=== PATIENT | male | born 1975 | race Caucasian/White ===

== ENCOUNTER 2020-05-06 02:26 | Inpatient (IN) | payer BC ==
[2020-05-06] MEDS ORDERED: LACTATED RINGERS SOLUTION 1000 ML INFUS.BAG IV ONE ×2 (02:43→06:04)
[2020-05-06] MEDS ORDERED: morphine SULFATE 4 MG/ML VIAL IVPUSH ONE (02:43)
[2020-05-06] MEDS ORDERED: FAMOTIDINE 20 MG/50 ML IVPB 20 MG/50 ML MG IVPB ONE ×2 (02:45→02:47)
[2020-05-06] MEDS ORDERED: morphine SULFATE 4 MG/ML VIAL ONE (02:47)
[2020-05-06 03:09] LABS: BASO % 0.4 % (0-2.0); EOS % 3.1 % (0-4.5); HEMATOCRIT 40.7 % (35.4-49); LYMPH % 15.1 % (8-40); MCH 31.2 pg (25.7-33.7); MCHC 34.4 g/dl (32.0-35.9); MEAN CELL VOLUME 90.8 fl (80-96); MEAN PLT VOLUME 9.3 fl (7.5-11.1); NEUT % 75.4 % (42.8-82.8); PLATELET COUNT 202 K/MM3 (134-434); RBC 4.48 M/mm3 (4.00-5.60); RDW 13.2 % (11.9-15.9); WHITE BLOOD COUNT 12.1 K/mm3 (4.0-10.0)
[2020-05-06 03:24] LABS: CHLORIDE 98 mmol/L (98-107); POTASSIUM 3.2 mmol/L (3.5-5.1); SODIUM 134 mmol/L (136-145)
[2020-05-06 03:26] LABS: ALBUMIN 4.3 g/dl (3.4-5.0)
[2020-05-06 03:27] LABS: ANION GAP 10 MMOL/L (8-16); BLOOD UREA NITROGEN 13.1 mg/dL (7-18); CO2 26 mmol/L (21-32); GLUCOSE,RANDOM 118 mg/dL (74-106); LIPASE 133 U/L (73-393); MAGNESIUM 1.7 mg/dL (1.8-2.4)
[2020-05-06 03:29] LABS: SGPT/ALT 32 U/L (13-61)
[2020-05-06 03:30] LABS: CREATININE 1.1 mg/dL (0.55-1.3); PHOSPHOROUS 1.4 mg/dL (2.5-4.9); SGOT/AST 21 U/L (15-37)
[2020-05-06 03:31] LABS: BILIRUBIN,TOTAL 1.2 mg/dL (0.2-1); TOT PROT 7.2 g/dl (6.4-8.2)
[2020-05-06 03:32] LABS: ALK PHOS 64 U/L (45-117)
[2020-05-06] MEDS ORDERED: HYDROmorphone HCl 2 MG/ML VIAL IVPB ONE (03:35)
[2020-05-06] MEDS ORDERED: HYDROmorphone HCl 2 MG/ML VIAL ONE (03:45)
[2020-05-06] MEDS ORDERED: POTASSIUM PHOSPHATE 30 MM in SODIUM CHLORIDE 250 ML IVPB ONE (07:38)
[2020-05-06] MEDS ORDERED: MAGNESIUM SULF 50% (8.12 MEQ/2 ML-1 GM VIAL) IVPB ONE (07:40)
[2020-05-06] MEDS ORDERED: MAGNESIUM 1GM/D5W - 1 GM/100 ML IVPB IVPB ONE (08:51)
[2020-05-06] MEDS ORDERED: ACETAMINOPHEN 325 MG TABLET (FP) ONE (09:16)
[2020-05-06] MEDS ORDERED: CEFTRIAXONE 1 GM in DEXTROSE 5%-WATER - 100 ML IVPB ONE (09:34)
[2020-05-06] MEDS ORDERED: CEFTRIAXONE 1 GM/50 ML BAG ONE (09:38)
[2020-05-06] MEDS ORDERED: ONDANSETRON 4 MG/2 ML VIAL IVPUSH ONE (10:14)
[2020-05-06] MEDS: CEFTRIAXONE 1 GM in DEXTROSE 5%-WATER - 50 ML IVPB SCH (11:20)
[2020-05-06] MEDS ORDERED: ONDANSETRON 4 MG/2 ML VIAL IVPUSH PRN (11:46)
[2020-05-06] MEDS: LACTATED RINGERS SOLUTION 1,000 ML IV SCH ×2 (13:20→22:55)
[2020-05-06 13:49] VITALS: BMI 24.3
[2020-05-06] MEDS: SIMETHICONE 80 MG TAB.CHEW (FP) PO PRN ×2 (18:50→22:34)
[2020-05-06 20:16] LABS: POTASSIUM 4.2 mmol/L (3.5-5.1)
[2020-05-06 20:17] LABS: CALCIUM 8.6 mg/dL (8.5-10.1)
[2020-05-06 20:18] LABS: BLOOD UREA NITROGEN 6.8 mg/dL (7-18); MAGNESIUM 2.4 mg/dL (1.8-2.4)
[2020-05-06 20:21] LABS: PHOSPHOROUS 2.5 mg/dL (2.5-4.9)
[2020-05-06] MEDS ORDERED: ACETAMINOPHEN 325 MG TABLET (FP) PO ONE (22:47)
[2020-05-07 08:06] LABS: BASO % 0.6 % (0-2.0); HEMATOCRIT 40.3 % (35.4-49); HEMOGLOBIN 13.7 GM/dL (11.7-16.9); LYMPH % 23.9 % (8-40); MCH 31.1 pg (25.7-33.7); MCHC 33.9 g/dl (32.0-35.9); MEAN CELL VOLUME 91.6 fl (80-96); MONO % 10.2 % (3.8-10.2); NEUT % 58.3 % (42.8-82.8); PLATELET COUNT 186 K/MM3 (134-434); RDW 12.9 % (11.9-15.9); WHITE BLOOD COUNT 7.9 K/mm3 (4.0-10.0)
[2020-05-07 08:20] LABS: POTASSIUM 4.2 mmol/L (3.5-5.1)
[2020-05-07 08:25] LABS: CALCIUM 8.7 mg/dL (8.5-10.1)
[2020-05-07 08:26] LABS: ALBUMIN 3.6 g/dl (3.4-5.0); BLOOD UREA NITROGEN 6.6 mg/dL (7-18); MAGNESIUM 2.5 mg/dL (1.8-2.4)
[2020-05-07 08:29] LABS: PHOSPHOROUS 2.8 mg/dL (2.5-4.9)
[2020-05-07 08:30] LABS: BILIRUBIN,TOTAL 1.9 mg/dL (0.2-1)
[2020-05-07 08:31] LABS: TOT PROT 6.2 g/dl (6.4-8.2)
[2020-05-07] MEDS ORDERED: DEXTROSE 5%-WATER - 50 ML IVPB ONE (11:48)
[2020-05-07] MEDS ORDERED: cefTRIAXone SODIUM 1 GM VIAL ONE (11:48)
[2020-05-07] MEDS: CEFTRIAXONE 1 GM in DEXTROSE 5%-WATER - 50 ML IVPB SCH (12:02)
[2020-05-07 13:00] LABS: BILIRUBIN,DIRECT 0.4 mg/dL (0.0-0.2)
[2020-05-07] MEDS: ENOXAPARIN NA (PORCINE) 40 MG/0.4 ML DISP.SYRIN SQ SCH (18:27)
[2020-05-07] MEDS: LACTATED RINGERS SOLUTION 1,000 ML IV SCH (18:28)
[2020-05-07] MEDS ORDERED: SODIUM CHLORIDE NASAL SPRAY 44 ML BOTTLE NS PRN (22:20)
[2020-05-08] MEDS ORDERED: ACETAMINOPHEN 325 MG TABLET (FP) PO PRN (01:30)
[2020-05-08] MEDS: LACTATED RINGERS SOLUTION 1,000 ML IV SCH ×2 (01:41→11:47)
[2020-05-08 08:32] LABS: HEMATOCRIT 39.6 % (35.4-49); HEMOGLOBIN 13.7 GM/dL (11.7-16.9); MCH 31.6 pg (25.7-33.7); MCHC 34.7 g/dl (32.0-35.9); MEAN CELL VOLUME 91.1 fl (80-96); MEAN PLT VOLUME 9.1 fl (7.5-11.1); PLATELET COUNT 183 K/MM3 (134-434); RBC 4.35 M/mm3 (4.00-5.60); RDW 12.9 % (11.9-15.9); WHITE BLOOD COUNT 7.1 K/mm3 (4.0-10.0)
[2020-05-08 09:08] LABS: BLOOD UREA NITROGEN 9.1 mg/dL (7-18); CALCIUM 8.5 mg/dL (8.5-10.1)
[2020-05-08] MEDS ORDERED: DEXTROSE 5%-WATER - 50 ML IVPB ONE (09:30)
[2020-05-08] MEDS ORDERED: cefTRIAXone SODIUM 1 GM VIAL ONE (09:30)
[2020-05-08] MEDS: CEFTRIAXONE 1 GM in DEXTROSE 5%-WATER - 50 ML IVPB SCH (10:47)
[2020-05-08] MEDS: ENOXAPARIN NA (PORCINE) 40 MG/0.4 ML DISP.SYRIN SQ SCH (11:47)
[2020-05-08 13:55] LABS: ALBUMIN 3.6 g/dl (3.4-5.0)
[2020-05-08 13:57] LABS: BILIRUBIN,DIRECT 0.3 mg/dL (0.0-0.2)
[2020-05-08 13:59] LABS: TOT PROT 6.3 g/dl (6.4-8.2)
[2020-05-08 15:07] VITALS: BP 126/50; PULSE 71; TEMP 98.8
[2020-05-08] MEDS ORDERED: PIPERACILLIN/TAZOB 3.375 GM 3.375 GM in DEXTROSE 5%-WATER - 50 ML IVPB SCH (18:00)
== END 2020-05-08 17:18 | disposition home or self-care (01) | DRG 446 ==
LOC: JER 02:26 → JERBED 10:39 → J5S 11:52
PROVIDERS: ADMIT Student in an Organized Health Care Education/Training Program; ATTEND Internal Medicine
DX: K80.00 Calculus of gallbladder with acute cholecystitis without obstruction (principal); E87.6 Hypokalemia; E83.42 Hypomagnesemia; E83.39 Other disorders of phosphorus metabolism; R00.0 Tachycardia, unspecified; D72.829 Elevated white blood cell count, unspecified; K44.9 Diaphragmatic hernia without obstruction or gangrene; N28.1 Cyst of kidney, acquired; R91.1 Solitary pulmonary nodule
CPT/HCPCS: 36415; 71275-TC; 74174-TC; 74181-TC; 76705-TC; 78226-TC; 80048; 80053; 80076; 82248; 82550; 83605; 83690; 83735; 84100; 84484; 85025; 85027; 93005; 93010; 99285-25; A9537; C9803; Q9967; U0003